=== PATIENT | female | born 1955 | race Caucasian/White ===

== ENCOUNTER 2018-03-28 11:23 | Emergency (ER) | payer MEDICARE, BC ==
[2018-03-28 12:38] LABS: ADD MAN DIFF? NO
[2018-03-28 12:46] LABS: BASOPHILS % 0.6 % (0.0-2.0); EOSINOPHILS # 0.1 10^3/ul (0.0-0.5); EOSINOPHILS % 2.5 % (0.0-7.0); HEMOGLOBIN 12.5 g/dl (12.0-16.0); LYMPHOCYTES # 1.2 10^3/ul (0.8-2.9); LYMPHOCYTES % 25.6 % (15.0-51.0); MEAN CORPUSCULAR HEMOGLOBIN 32.1 pg (29.0-33.0); MEAN CORPUSCULAR HGB CONC 32.9 g/dl (32.0-37.0); MEAN CORPUSCULAR VOLUME 97.4 fl (82.0-101.0); MEAN PLATELET VOLUME 10.6 fl (7.4-10.4); MONOCYTE # 0.2 10^3/ul (0.3-0.9); NEUTROPHIL # 3.1 10^3/ul (1.6-7.5); NEUTROPHILS % 65.9 % (39.0-77.0); PLATELET COUNT 106 10^3/UL (140-415); RED CELL DISTRIBUTION WIDTH 13.7 % (11.5-14.5)
[2018-03-28 12:46] LABS: WHITE BLOOD COUNT 4.8 10^3/ul (4.8-10.8)
[2018-03-28 12:50] LABS: ADD UMIC YES; UR ASCORBIC ACID NEGATIVE (NEGATIVE); UR BACTERIA FEW /HPF (NONE SEEN); UR BILIRUBIN (Dip) NEGATIVE (NEGATIVE); UR BLOOD (Dip) 1+ mg/dL (NEGATIVE); UR CLARITY SLIGHTLY CLOUDY (CLEAR); UR COLOR YELLOW (YELLOW); UR GLUCOSE (Dip) NEGATIVE (NEGATIVE); UR KETONES (Dip) NEGATIVE (NEGATIVE); UR LEUKOCYTE ESTERASE (Dip) 1+ Leu/ul (NEGATIVE); UR NITRITE (Dip) POSITIVE (NEGATIVE); UR RBC 2 /HPF (0-5); UR SPECIFIC GRAVITY (Dip) 1.015 (1.003-1.030); UR SQUAMOUS EPITHELIAL CELL FEW /HPF (FEW); UR TOTAL PROTEIN (Dip) NEGATIVE (NEGATIVE); UR UROBILINOGEN (Dip) NEGATIVE (NEGATIVE); UR WBC 33 /HPF (0-5)
[2018-03-28 12:51] LABS: POSITIVE DIFF @See below
[2018-03-28 13:04] LABS: ALANINE AMINOTRANSFERASE 36 IU/L (13-69); ALBUMIN 4.3 g/dl (3.3-4.9); ALBUMIN/GLOBULIN RATIO 0.93; ALKALINE PHOSPHATASE 119 IU/L (42-121); ANION GAP 17 (8-16); ASPARTATE AMINO TRANSFERASE 39 IU/L (15-46); BILIRUBIN,INDIRECT 0.7 mg/dl (0-1.1); BILIRUBIN,TOTAL 0.7 mg/dl (0.2-1.3); BLOOD UREA NITROGEN 13 mg/dl (7-20); CALCIUM 9.3 mg/dl (8.4-10.2); CARBON DIOXIDE 25 mmol/L (21-31); CHLORIDE 110 mmol/L (97-110); CREATININE 0.83 mg/dl (0.44-1.00); GLUCOSE 132 mg/dl (70-220); LIPASE 78 U/L (23-300); POTASSIUM 3.7 mmol/L (3.5-5.1); SODIUM 148 mmol/L (135-144); TOTAL PROTEIN 8.9 g/dl (6.1-8.1)
[2018-03-28 13:14] LABS: B-TYPE NATRIURETIC PEPTIDE 42 PG/ML (0-125); TROPONIN-I 0.011 ng/ml (0.000-0.120)
== END 2018-03-28 14:32 | disposition home or self-care (01) ==
LOC: FTE 11:23
DX: N39.0 Urinary tract infection, site not specified (principal); I87.2 Venous insufficiency (chronic) (peripheral); I10 Essential (primary) hypertension
CPT/HCPCS: 36415; 71045; 80053; 81001; 83690; 83880; 84484; 85025; 93970; 99285-25

== ENCOUNTER 2018-06-05 16:09 | Inpatient (IN) | payer MEDICARE, BC ==
[2018-06-05 16:57] LABS: ADD MAN DIFF? NO
[2018-06-05 17:00] LABS: WHITE BLOOD COUNT 8.1 10^3/ul (4.8-10.8)
[2018-06-05 17:00] LABS: ABNORMAL IP MESSAGE 1; BASOPHILS % 0.2 % (0.0-2.0); EOSINOPHILS % 0.1 % (0.0-7.0); HEMATOCRIT 34.3 % (37.0-47.0); HEMOGLOBIN 11.5 g/dl (12.0-16.0); LYMPHOCYTES # 0.9 10^3/ul (0.8-2.9); LYMPHOCYTES % 10.6 % (15.0-51.0); MEAN CORPUSCULAR HEMOGLOBIN 32.3 pg (29.0-33.0); MEAN CORPUSCULAR HGB CONC 33.5 g/dl (32.0-37.0); MEAN CORPUSCULAR VOLUME 96.3 fl (82.0-101.0); MEAN PLATELET VOLUME 10.8 fl (7.4-10.4); MONOCYTE # 0.7 10^3/ul (0.3-0.9); MONOCYTES % 8.4 % (0.0-11.0); NEUTROPHIL # 6.4 10^3/ul (1.6-7.5); NEUTROPHILS % 80.1 % (39.0-77.0); PLATELET COUNT 80 10^3/UL (140-415); RED BLOOD COUNT 3.56 10^6/ul (4.20-5.40); RED CELL DISTRIBUTION WIDTH 13.8 % (11.5-14.5)
[2018-06-05 17:04] LABS: POSITIVE DIFF @See below
[2018-06-05 17:16] LABS: LACTIC ACID 1.2 mmol/L (0.5-2.0)
[2018-06-05 17:17] LABS: ALANINE AMINOTRANSFERASE 22 IU/L (13-69); ALBUMIN/GLOBULIN RATIO 0.86; ALKALINE PHOSPHATASE 99 IU/L (42-121); ANION GAP 15 (8-16); ASPARTATE AMINO TRANSFERASE 30 IU/L (15-46); BILIRUBIN,INDIRECT 0.9 mg/dl (0-1.1); BILIRUBIN,TOTAL 0.9 mg/dl (0.2-1.3); BLOOD UREA NITROGEN 22 mg/dl (7-20); CALCIUM 8.9 mg/dl (8.4-10.2); CARBON DIOXIDE 25 mmol/L (21-31); CHLORIDE 106 mmol/L (97-110); GLUCOSE 148 mg/dl (70-220); POTASSIUM 3.6 mmol/L (3.5-5.1); SODIUM 142 mmol/L (135-144); TOTAL PROTEIN 8.6 g/dl (6.1-8.1)
[2018-06-05 17:18] LABS: INR 1.17; PROTIME 15.1 Sec (11.9-14.9); PT RATIO 1.2
[2018-06-05 17:19] LABS: PARTIAL THROMBOPLASTIN TIME 34.2 Sec (25.0-35.0)
[2018-06-05] MEDS: SODIUM CHLORIDE 0.9% 1L BAG IV* (17:26)
[2018-06-05] MEDS: ACETAMINOPHEN 325 MG TAB PO ×2 (17:26→22:24)
[2018-06-05] MEDS: CEFEPIME 2GM/50 ML (PMX) 50 ML IVPB (17:26)
[2018-06-05 17:28] LABS: TROPONIN-I < 0.010 ng/ml (0.000-0.120)
[2018-06-05 17:49] LABS: ADD UMIC YES; UR ASCORBIC ACID NEGATIVE (NEGATIVE); UR BACTERIA FEW /HPF (NONE SEEN); UR BILIRUBIN (Dip) NEGATIVE (NEGATIVE); UR BLOOD (Dip) 2+ mg/dL (NEGATIVE); UR CLARITY SLIGHTLY CLOUDY (CLEAR); UR COLOR YELLOW (YELLOW); UR GLUCOSE (Dip) NEGATIVE (NEGATIVE); UR KETONES (Dip) NEGATIVE (NEGATIVE); UR LEUKOCYTE ESTERASE (Dip) 3+ Leu/ul (NEGATIVE); UR NITRITE (Dip) POSITIVE (NEGATIVE); UR RBC 0 /HPF (0-5); UR SPECIFIC GRAVITY (Dip) 1.012 (1.003-1.030); UR SQUAMOUS EPITHELIAL CELL FEW /HPF (FEW); UR TOTAL PROTEIN (Dip) 2+ mg/dl (NEGATIVE); UR UROBILINOGEN (Dip) NEGATIVE (NEGATIVE); UR WBC 95 /HPF (0-5)
[2018-06-05] MEDS: VANCOMYCIN 1 GM (PMX) 250 ML IVPB (17:56)
[2018-06-05] MEDS ORDERED: ACETAMINOPHEN 325 MG TAB PO (18:30)
[2018-06-05] MEDS ORDERED: ONDANSETRON 4 MG INJ IV ×2 (18:30→19:00)
[2018-06-05] MEDS ORDERED: ZOLPIDEM 5 MG TAB PO (19:00)
[2018-06-05] MEDS ORDERED: HYDROCODONE/APAP (5/325) TAB PO (19:00)
[2018-06-05] MEDS ORDERED: morphine 2 MG INJ IV (19:00)
[2018-06-05] MEDS ORDERED: NACL 0.9% 3 ML SYG IV (19:00)
[2018-06-05] MEDS ORDERED: MAGNESIUM HYDROXIDE 30ML CUP PO (19:00)
[2018-06-05] MEDS ORDERED: DOCUSATE SODIUM 100 MG CAP PO (19:00)
[2018-06-05 19:09] LABS: LACTIC ACID 1.3 mmol/L (0.5-2.0)
[2018-06-05] MEDS ORDERED: hydrALAzine 20 MG INJ IV (19:30)
[2018-06-05 20:41] LABS: LACTIC ACID 2.4 mmol/L (0.5-2.0)
[2018-06-05] MEDS: PAROXETINE 20 MG TAB PO (22:24)
[2018-06-05] MEDS: POTASSIUM CHLORIDE (SR) 10 MEQ TAB PO (22:25)
[2018-06-06] MEDS: SOD CHLORIDE 0.9% 1,000 ML IV (02:29)
[2018-06-06] MEDS ORDERED: ALBUTEROL/IPRATROPIUM (NEB) 3 ML AMP HHN (04:00)
[2018-06-06] MEDS: FUROSEMIDE 20 MG INJ IV (04:32)
[2018-06-06] MEDS: METHYLPREDNISOLONE 125 MG INJ IV (04:33)
[2018-06-06] MEDS: CEFTRIAXONE 1 GM/50 ML (PMX) 50 ML IVPB (06:22)
[2018-06-06 06:30] LABS: ADD MAN DIFF? NO
[2018-06-06 06:48] LABS: WHITE BLOOD COUNT 7.7 10^3/ul (4.8-10.8)
[2018-06-06 06:48] LABS: ABNORMAL IP MESSAGE 1; BASOPHILS % 0.3 % (0.0-2.0); HEMOGLOBIN 11.3 g/dl (12.0-16.0); LYMPHOCYTES # 0.6 10^3/ul (0.8-2.9); LYMPHOCYTES % 8.1 % (15.0-51.0); MEAN CORPUSCULAR HGB CONC 33.2 g/dl (32.0-37.0); MEAN CORPUSCULAR VOLUME 96.3 fl (82.0-101.0); MONOCYTE # 0.3 10^3/ul (0.3-0.9); NEUTROPHIL # 6.7 10^3/ul (1.6-7.5); NEUTROPHILS % 87.1 % (39.0-77.0); PLATELET COUNT 64 10^3/UL (140-415); RED BLOOD COUNT 3.53 10^6/ul (4.20-5.40); RED CELL DISTRIBUTION WIDTH 13.9 % (11.5-14.5)
[2018-06-06 06:49] LABS: POSITIVE DIFF @See below
[2018-06-06 06:55] LABS: ANION GAP 16 (8-16); BLOOD UREA NITROGEN 16 mg/dl (7-20); CALCIUM 8.2 mg/dl (8.4-10.2); CARBON DIOXIDE 22 mmol/L (21-31); CHLORIDE 110 mmol/L (97-110); CREATININE 1.09 mg/dl (0.44-1.00); GLUCOSE 182 mg/dl (70-220); MAGNESIUM 1.8 mg/dl (1.7-2.5); PHOSPHORUS 2.5 mg/dl (2.5-4.9); POTASSIUM 3.5 mmol/L (3.5-5.1); SODIUM 144 mmol/L (135-144)
[2018-06-06 07:25] LABS: HEMOGLOBIN A1C 6.4 % (0-5.9)
[2018-06-06] MEDS: POTASSIUM CHLORIDE (SR) 10 MEQ TAB PO ×3 (08:51→22:41)
[2018-06-06] MEDS: PAROXETINE 20 MG TAB PO (22:41)
[2018-06-07 06:26] LABS: ADD MAN DIFF? NO
[2018-06-07 06:31] LABS: ABNORMAL IP MESSAGE 1; HEMATOCRIT 33.7 % (37.0-47.0); HEMOGLOBIN 11.1 g/dl (12.0-16.0); LYMPHOCYTES % 15.4 % (15.0-51.0); MEAN CORPUSCULAR HEMOGLOBIN 31.8 pg (29.0-33.0); MEAN CORPUSCULAR HGB CONC 32.9 g/dl (32.0-37.0); MEAN CORPUSCULAR VOLUME 96.6 fl (82.0-101.0); MEAN PLATELET VOLUME 10.8 fl (7.4-10.4); MONOCYTE # 0.5 10^3/ul (0.3-0.9); MONOCYTES % 6.8 % (0.0-11.0); NEUTROPHIL # 5.2 10^3/ul (1.6-7.5); NEUTROPHILS % 77.1 % (39.0-77.0); PLATELET COUNT 68 10^3/UL (140-415); RED BLOOD COUNT 3.49 10^6/ul (4.20-5.40); RED CELL DISTRIBUTION WIDTH 13.5 % (11.5-14.5)
[2018-06-07 06:31] LABS: WHITE BLOOD COUNT 6.8 10^3/ul (4.8-10.8)
[2018-06-07] MEDS: CEFTRIAXONE 1 GM/50 ML (PMX) 50 ML IVPB (06:36)
[2018-06-07 06:46] LABS: POSITIVE DIFF @See below
[2018-06-07 06:51] LABS: LACTIC ACID 1.3 mmol/L (0.5-2.0)
[2018-06-07 07:06] LABS: ANION GAP 12 (8-16); BLOOD UREA NITROGEN 23 mg/dl (7-20); CALCIUM 8.5 mg/dl (8.4-10.2); CARBON DIOXIDE 25 mmol/L (21-31); CHLORIDE 109 mmol/L (97-110); CREATININE 0.97 mg/dl (0.44-1.00); GLUCOSE 182 mg/dl (70-220); POTASSIUM 4.1 mmol/L (3.5-5.1); SODIUM 142 mmol/L (135-144)
[2018-06-07] MEDS: POTASSIUM CHLORIDE (SR) 10 MEQ TAB PO ×3 (08:29→21:14)
[2018-06-07] MEDS: PAROXETINE 20 MG TAB PO (21:14)
[2018-06-07] MEDS: ACETAMINOPHEN 325 MG TAB PO (22:20)
[2018-06-08 05:57] LABS: ANION GAP 11 (8-16); BLOOD UREA NITROGEN 23 mg/dl (7-20); CALCIUM 8.3 mg/dl (8.4-10.2); CARBON DIOXIDE 26 mmol/L (21-31); CHLORIDE 110 mmol/L (97-110); CREATININE 0.98 mg/dl (0.44-1.00); GLUCOSE 119 mg/dl (70-220); POTASSIUM 3.9 mmol/L (3.5-5.1); SODIUM 143 mmol/L (135-144)
[2018-06-08] MEDS: CEFTRIAXONE 1 GM/50 ML (PMX) 50 ML IVPB (06:07)
[2018-06-08] MEDS: POTASSIUM CHLORIDE (SR) 10 MEQ TAB PO ×3 (09:33→20:59)
[2018-06-08] MEDS: PAROXETINE 20 MG TAB PO (20:58)
[2018-06-09] MEDS: CEFTRIAXONE 1 GM/50 ML (PMX) 50 ML IVPB (06:33)
[2018-06-09] MEDS: ACETAMINOPHEN 325 MG TAB PO (08:16)
[2018-06-09] MEDS: POTASSIUM CHLORIDE (SR) 10 MEQ TAB PO ×3 (08:16→21:00)
[2018-06-09] MEDS ORDERED: morphine LIQ (10 MG/5 ML) CUP PO (16:00)
[2018-06-09] MEDS: PAROXETINE 20 MG TAB PO (21:00)
[2018-06-10] MEDS: CEFTRIAXONE 1 GM/50 ML (PMX) 50 ML IVPB (06:39)
[2018-06-10] MEDS: POTASSIUM CHLORIDE (SR) 10 MEQ TAB PO ×3 (08:20→21:33)
[2018-06-10] MEDS: OXYBUTYNIN 5 MG TAB PO ×3 (09:03→21:33)
[2018-06-10] MEDS: CALCIUM CARBONATE 500 MG CHEW TAB PO (18:06)
[2018-06-10] MEDS: PAROXETINE 20 MG TAB PO (21:33)
[2018-06-11] MEDS: CEFTRIAXONE 1 GM/50 ML (PMX) 50 ML IVPB (06:15)
[2018-06-11] MEDS: OXYBUTYNIN 5 MG TAB PO ×3 (08:38→21:11)
[2018-06-11] MEDS: POTASSIUM CHLORIDE (SR) 10 MEQ TAB PO ×3 (08:38→21:11)
[2018-06-11] MEDS: PAROXETINE 20 MG TAB PO (21:11)
[2018-06-12] MEDS: CEFTRIAXONE 1 GM/50 ML (PMX) 50 ML IVPB (06:07)
[2018-06-12] MEDS: OXYBUTYNIN 5 MG TAB PO ×3 (08:45→20:10)
[2018-06-12] MEDS: POTASSIUM CHLORIDE (SR) 10 MEQ TAB PO ×3 (08:45→20:10)
[2018-06-12] MEDS: PAROXETINE 20 MG TAB PO (20:10)
[2018-06-12] MEDS: ACETAMINOPHEN 325 MG TAB PO (20:10)
[2018-06-13] MEDS: CEFTRIAXONE 1 GM/50 ML (PMX) 50 ML IVPB (05:44)
[2018-06-13] MEDS: OXYBUTYNIN 5 MG TAB PO ×3 (08:36→20:06)
[2018-06-13] MEDS: POTASSIUM CHLORIDE (SR) 10 MEQ TAB PO ×3 (08:36→20:06)
[2018-06-13] MEDS: PAROXETINE 20 MG TAB PO (20:06)
== END 2018-06-13 20:45 | disposition home or self-care (01) | DRG 871 ==
LOC: E/R 16:09 → PP2 18:10
DX: A41.9 Sepsis, unspecified organism (principal); G93.41 Metabolic encephalopathy; N17.0 Acute kidney failure with tubular necrosis; Z68.41 Body mass index [BMI] 40.0-44.9, adult; N13.6 Pyonephrosis; E86.0 Dehydration; I10 Essential (primary) hypertension; E66.01 Morbid (severe) obesity due to excess calories; Z90.49 Acquired absence of other specified parts of digestive tract; R32 Unspecified urinary incontinence; N31.9 Neuromuscular dysfunction of bladder, unspecified
CPT/HCPCS: 36415; 71045; 74018; 74176; 80048; 80053; 81001; 83036; 83605; 83735; 84100; 84484; 85025; 85610; 85730; 87040; 87086; 93005; 96374; 96375; 97110; 97116; 97161; 97530; 99291-25